=== PATIENT | female | born 1980 | race Caucasian/White ===

== ENCOUNTER 2019-01-16 08:30 | Day surgery (SDC) | payer OTHER ==
[~2019-01-16 08:30] MED LIST: AZIT250 PO; HYDACE5 PO; IBUP600 PO; NAPR500 PO; NAPR550 PO; OXYACE5T PO; RXNAPNA550 PO
== END 2019-01-16 22:46 | disposition home or self-care (01) ==
LOC: MOI RAD 08:30
DX: M75.82 Other shoulder lesions, left shoulder (principal)
CPT/HCPCS: 20610; 73222; 77002; A9577; Q9967

== ENCOUNTER 2020-06-11 06:16 | Day surgery (SDC) | payer OTHER ==
[~2020-06-11] VITALS: Ht 165.1 cm; Wt 86.4 kg
[~2020-06-11 06:16] MED LIST changes: +PROG100 PO
--- NOTE | 2020-06-11 07:52 | NUR ---
06/11/20 0752 Braden Beck 1 MG EPI ADDED TO EACH OF THE FIRST 3 BAGS OF LR FOR IRRIGATION PER ORDER.
--- NOTE | 2020-06-11 09:19 | NUR ---
06/11/20 0919 DIONY MARCH PT TO STEP DOWN VIA BED, SBA TRANSFER TO RECLINER. PT NAUSEATED AND MEDICATED WITH IV ZOFRAN PER MD ORDER. PT REPORTS SHOULDER IS NOT PAINFUL BUT HER NECK AND THROAT ARE SORE. THIS IS TOLERABLE. ICE PACK TO SHOULDER. SLING IN PLACE. ENGAGED IN DC TEACHING AND ALL QUESTIONS ASKED AND ANSWERED.
== END 2020-06-11 10:28 | disposition home or self-care (01) ==
LOC: ORSCSDS 06:16
PROVIDERS: Orthopaedic Surgery
PROC: 0RNK4ZZ Release Left Shoulder Joint, Percutaneous Endoscopic Approach (ICD-10-PCS; principal; 2020-06-11 07:30)
PROC: 0LS44ZZ Reposition Left Upper Arm Tendon, Percutaneous Endoscopic Approach (ICD-10-PCS; principal; 2020-06-11 07:30)
PROC: 0LU24KZ Supplement Left Shoulder Tendon with Nonautologous Tissue Substitute, Percutaneous Endoscopic Approach (ICD-10-PCS; principal; 2020-06-11 07:30)
PROC: 0LQ24ZZ Repair Left Shoulder Tendon, Percutaneous Endoscopic Approach (ICD-10-PCS; principal; 2020-06-11 07:30)
DX: M75.112 Incomplete rotator cuff tear or rupture of left shoulder, not specified as traumatic (principal); M75.22 Bicipital tendinitis, left shoulder; M75.42 Impingement syndrome of left shoulder
CPT/HCPCS: C1713; J0171; J0330; J2250; J2405; J2704; J2765; J3010; J7120